=== PATIENT | female | born 1980 | race Caucasian/White ===

== ENCOUNTER 2024-08-26 10:43 | Emergency (ER) | payer OTHER ==
[~2024-08-26] VITALS: Ht 170.2 cm; Wt 68.0 kg
[2024-08-26] MEDS ORDERED: IBUP-1955 PO (13:08)
[2024-08-26 13:24] VITALS: BP 119/84; TEMP 97.5; O2SAT 98
== END 2024-08-26 13:24 | disposition home or self-care (01) ==
LOC: ER 10:49
DX: S06.0X0A Concussion without loss of consciousness, initial encounter (principal); S43.401A Unspecified sprain of right shoulder joint, initial encounter; S73.101A Unspecified sprain of right hip, initial encounter; M54.50 Low back pain, unspecified; R11.2 Nausea with vomiting, unspecified; W01.0XXA Fall on same level from slipping, tripping and stumbling without subsequent striking against object, initial encounter; Y93.89 Activity, other specified; Y92.89 Other specified places as the place of occurrence of the external cause; Y99.8 Other external cause status
CPT/HCPCS: 70450-TC; 72125-TC